=== PATIENT | female | born 2000 | race Caucasian/White ===

== ENCOUNTER → 2022-03-30 10:56 | Outpatient (CLI) | payer OTHER, SELFPAY ==
--- NOTE | 2022-03-30 10:58 | DI.US.S_ITS ---
PROCEDURE: US OB <= 14 WEEKS FETUS INDICATIONS: DATING OUTSIDE/PRIOR DATING DATA: Last menstrual period (LMP): January 10, 2022. LMP-based estimated date of delivery (MOE): October 17, 2022. First dating scan (date and location): March 30, 2022, [facility]. Estimated date of delivery (MOE) from first dating scan: October 23, 2022. TECHNIQUE: Real-time scanning was performed of the fetus and maternal pelvic organs, with image documentation. Endovaginal scanning was also performed to better visualize the fetus and maternal ovaries. COMPARISON: None. FINDINGS: Embryo: Single live intrauterine gestation visualized with a crown-rump length of 3.6 cm for a gestational age of 10 weeks, 3 days. Heart rate: 162 Maternal organs: Ovaries have a normal sonographic appearance. The left ovary is only partially characterized given location.. IMPRESSION: Single live intrauterine gestation with a gestational age of 10 weeks, 3 days by crown-rump length. We strive to produce accurate, complete, and clear reports of imaging services. To assist us in improving patient care, this report was composed using standard report templates and voice recognition software. Therefore, it may contain abnormal punctuation, insertions and/or omissions. Occasional wrong-word or sound-alike substitutions may occur. Though we review the report and make efforts to correct it, we do recommend that the report be read carefully in proper context to recognize any text inaccuracies. Dictated by: Yanci Conner M.D. on 03/30/2022 at 13:47 Approved by: Yanci Conner M.D. on 03/30/2022 at 13:48
== END ==
PROVIDERS: Referring Provider Obstetrics & Gynecology; Visit Provider Obstetrics & Gynecology
DX: Z34.01 Encounter for supervision of normal first pregnancy, first trimester (principal); Z3A.10 10 weeks gestation of pregnancy
CPT/HCPCS: 76801; 76817

== ENCOUNTER → 2022-04-13 16:03 | Outpatient (CLI) | payer OTHER, SELFPAY ==
[2022-04-13 17:58] LABS: Add Manual Diff / Slide Review NO; Basophils Absolute Auto 100 /uL (0-100); Basophils Percent Auto 0.5 % (0-2); Eosinophils Absolute Auto 500 /uL (0-450); Eosinophils Percent Auto 3.8 % (2-4); Hematocrit 36.3 % (36-46); Hemoglobin 12.8 g/dL (12.0-16.0); Lymphocytes Absolute Auto 2100 /uL (1100-4500); Lymphocytes Percent Auto 17.2 % (25-40); Mean Corpuscular HGB Conc 35.3 % (30-36); Mean Corpuscular Hemoglobin 30.7 PG (26-34); Monocytes Absolute Auto 600 /uL (0-900); Neutrophils Absolute Auto 8800 /uL (1500-7000); Neutrophils Percent Auto 73.5 % (50-75); Platelet Count 219 X10^3/uL (150-400); Red Blood Cell Count 4.17 X10^6/uL (4.0-5.2); Red Cell Distribution Width 13.1 % (11.6-14.8)
[2022-04-13 20:58] LABS: Rubella Antibody IgG 13.5 IU/mL (>15)
[2022-04-13 21:18] LABS: HIV 1 & 2 Ab/Ag 4th Gen Combo NEGATIVE (NEGATIVE); Hep C Virus Ab w/Reflex Quant NEGATIVE s/c (NEGATIVE)
[2022-04-15 12:27] LABS: Varicella IgG Antibody <135 index (Immune >165)
[2022-04-15 15:44] LABS: Hepatitis B Surface Antigen NEGATIVE s/c (NEGATIVE)
[2022-04-17 08:09] LABS: RPR Screen Non Reactive (Non Reactive)
== END ==
PROVIDERS: Referring Provider Obstetrics & Gynecology; Visit Provider Obstetrics & Gynecology
DX: Z34.01 Encounter for supervision of normal first pregnancy, first trimester (principal)
CPT/HCPCS: 36415; 80055; 86787; 86803; 86850; 86900; 86901; 87389

== ENCOUNTER → 2022-05-04 09:22 | Outpatient (CLI) | payer OTHER, SELFPAY ==
[2022-05-04 10:01] LABS: Appearance Urine UA CLEAR; Bilirubin Urine UA NEGATIVE (NEGATIVE); Color Urine UA YELLOW; Glucose Urine UA NEGATIVE (Negative); Ketones Urine UA NEGATIVE (NEGATIVE); Leukocyte Esterase Urine UA NEGATIVE (NEGATIVE); Nitrite Urine UA NEGATIVE (Negative); Occult Blood Urine UA NEGATIVE (Negative); Protein Urine UA NEGATIVE (Negative); Specific Gravity Urine UA <=1.005 (1.000-1.035); Urobilinogen Urine UA 0.2 E.U./dL (0.2)
[2022-05-04 10:06] LABS: pH Urine UA 6.5 (4.5-8.0)
[2022-05-04 11:27] LABS: Urine N gonorrhoeae NOT DETECTED
[2022-05-04 11:29] LABS: Urine Chlamydia NOT DETECTED
[2022-05-06 20:38] LABS: AFP, Serum 18.3 ng/mL (.); Estriol, Free 0.62 ng/mL (.); Inhibin A, Dimeric 88.72 pg/mL (.); Inhibin A, MoM 0.64 (.); Maternal Ethnicity Caucasian (.); Maternal Weight 186 lbs (.); Number of Fetuses No (.); OSBR Risk 1 IN 10000 (.); Results Report (.); Test Results *Screen Negative* (.); hCG, MoM 0.54 (.); hCG, Serum 17970 mIU/mL (.)
== END ==
PROVIDERS: Referring Provider Obstetrics & Gynecology; Visit Provider Obstetrics & Gynecology
DX: Z34.02 Encounter for supervision of normal first pregnancy, second trimester (principal); Z3A.16 16 weeks gestation of pregnancy
CPT/HCPCS: 36415; 81003; 82105; 82677; 84702; 86336; 87491; 87591

== ENCOUNTER → 2022-06-03 10:08 | Outpatient (CLI) | payer OTHER, SELFPAY ==
--- NOTE | 2022-06-03 10:08 | DI.US.S_ITS ---
PROCEDURE: US OB >= 14 WEEKS FETUS INDICATIONS: ANATOMY OUTSIDE/PRIOR DATING DATA: Last menstrual period (LMP): 01/10/2022 LMP-based estimated date of delivery (MOE): 10/17/2022 First dating scan (date and location): 03/30/2023 Estimated date of delivery (MOE) from first dating scan: 10/23/2022 The calculations are made using the working MOE of 10/17/2022. TECHNIQUE: Real-time scanning was performed of the fetus, with image documentation and biometric measurements. Endovaginal scanning: Not indicated COMPARISON: [facility], OB <= 14 WEEKS FETUS, 03/30/2022, 11:06. FINDINGS: General: A single living intrauterine gestation is present. Presentation: Breech Placenta: Placental position is anterior, without previa. Amniotic fluid index: 16.7 cm, normal range is 5-24 cm. Single deepest vertical pocket is 4.8 cm. heart rate: 143 beats per minute. Maternal cervical canal: 3.3 cm long. Normal lower limit is 2.5 cm. biometrics: Biparietal diameter: 4.9 cm, 20 weeks, 6 days. Head circumference: 18.0 cm, 20 weeks, 3 days. Abdominal circumference: 14.4 cm, 19 weeks, 5 days. Femur length: 3.3 cm, 20 weeks, 2 days. Clinically estimated gestational age: 20 weeks, 2 days Composite gestational age from present scan: 19 weeks, 5 days Estimated weight and percentile: 331 g, 67% Anatomic survey: Neuro: Ventricles are non-dilated at less than 10 mm. Cisterna magna is normal at 3-11 mm. Cerebellum is normal in size and morphology. Nuchal skin fold: Normal at less than 6 mm between 14-21 weeks gestational age. Face: Nose and lips, facial profile are normal. Spine: No evidence for spina bifida. Heart: 4-chambered heart is present, with normal ventricular outflow tracts. Diaphragm: Diaphragm is intact. Stomach: Left-sided stomach is present. Kidneys: No hydronephrosis. Normal is less than 5 mm in 2nd trimester, less than 7 mm in 3rd trimester. Cord: 3-vessel cord has orthotopic insertion. Bladder: Normal in size. Extremities: All 4 extremities identified. IMPRESSION: 1. Single live intrauterine gestation with fetus in breech presentation. heart rate is 143 beats per minute. Normal amount of amniotic fluid. Normal growth. Estimated weight is at 67%. 2. Normal anatomic survey. We strive to produce accurate, complete, and clear reports of imaging services. To assist us in improving patient care, this report was composed using standard report templates and voice recognition software. Therefore, it may contain abnormal punctuation, insertions and/or omissions. Occasional wrong-word or sound-alike substitutions may occur. Though we review the report and make efforts to correct it, we do recommend that the report be read carefully in proper context to recognize any text inaccuracies. Dictated by: Shaheen Lujan M.D. on 06/03/2022 at 13:10 Approved by: Shaheen Lujan M.D. on 06/03/2022 at 13:13
== END ==
PROVIDERS: Referring Provider Obstetrics & Gynecology; Visit Provider Obstetrics & Gynecology
DX: Z34.02 Encounter for supervision of normal first pregnancy, second trimester (principal); Z3A.19 19 weeks gestation of pregnancy
CPT/HCPCS: 76811

== ENCOUNTER → 2022-07-13 10:31 | Outpatient (CLI) | payer OTHER, SELFPAY | PROVIDERS: Visit Provider Obstetrics & Gynecology | DX: Z34.02 Encounter for supervision of normal first pregnancy, second trimester (principal); Z3A.26 26 weeks gestation of pregnancy | CPT/HCPCS: 87086 ==

== ENCOUNTER → 2022-07-20 10:56 | Outpatient (CLI) | payer OTHER, SELFPAY ==
[2022-07-20 13:02] LABS: Hematocrit 37.1 % (36-46); Hemoglobin 12.6 g/dL (12.0-16.0)
[2022-07-20 13:07] LABS: GTT (PREG) 1 Hour PP 50gm Dose 135 mg/dL (76-139)
--- NOTE | 2022-09-19 22:46 | PM.CALLCOV.1 ---
Call Coverage Note Note Date of Patient Contact: 09/18/22 Time of Patient Contact: 10:00 Narrative of Care Provided: Destiny is a 22 year old who is approx 36 weeks. Called with spotting, only noticed on her underwear. Denies loss of fluid. Baby moving well. Provided reassurance and reviewed warning signs.
== END ==
PROVIDERS: Referring Provider Obstetrics & Gynecology; Visit Provider Obstetrics & Gynecology
DX: Z34.02 Encounter for supervision of normal first pregnancy, second trimester (principal); Z3A.26 26 weeks gestation of pregnancy
CPT/HCPCS: 36415; 82950; 85014; 85018

== ENCOUNTER → 2022-09-21 11:18 | Outpatient (CLI) | payer OTHER, SELFPAY ==
[2022-09-22 07:39] LABS: Strep Grp B PCR NEG for Grp B Strep
== END ==
PROVIDERS: Visit Provider Obstetrics & Gynecology
DX: Z34.03 Encounter for supervision of normal first pregnancy, third trimester (principal); Z3A.36 36 weeks gestation of pregnancy
CPT/HCPCS: 87653

== ENCOUNTER 2022-10-20 16:54 | Outpatient (CLI) | payer OTHER, SELFPAY ==
--- NOTE | 2022-10-20 17:41 | PM.OBTRLD ---
Visit Information Visit Information Date of evaluation: 10/20/22 Primary OB Provider: Master Tejada On-call OB Provider: Kelly Wells Reason for Evaluation: Yes non-stress test non-stress test reason: other (Postdates) Vital Signs Vital Signs: Blood pressure 131/86 [facility] Medical History (Updated 10/20/22 @ 17:42 by Kelly Wells MD) Anxiety Asthma Depression Fibroadenoma of left breast Fractures History of bipolar disorder Surgical History (Updated 03/30/22 @ 10:04 by Na Doyle, RN) H/O tooth extraction Family History (Updated 03/30/22 @ 10:05 by Na Doyle, RN) Mother Preeclampsia Social History marital status: number of children: 0 household members: spouse lives independently: Yes housing: condominium pets and animals: Yes (1 dog) education level: college occupational status: employed current occupational exposures/hazards: No special jessica needs: No travel history: recent seatbelt use: always helmet use: Yes water heater temp set < 120 deg: No (will adjust) working smoke detector in home: Yes fire extinguisher in home: Yes carbon monox detector in home: Yes firearms in home: No do you feel safe at home: Yes Smoking Status: Never smoker second hand exposure: No alcohol intake: former during the past year weight has: increased > 10 lbs well-balanced diet: daily or most days daily servings fruits/ve-4 caffeine: Yes (Aware of 200mg limit) Type(s) of exercise: walking frequency: 1-2 times per week Evaluation Evaluation Baseline heart rate: 130 Variability: Moderate (11-25) monitor accelerations: Present Monitor Decelerations: Absent Contraction Frequency (minutes): 4 Uterine Contraction Intensity: Mild Category of Tracing: Reactive Status: Category l Diagnosis, Plan/Disposition Final Diagnosis (1) 40 weeks gestation of : Status: Acute Plan/Disposition Plan: Reactive nonstress test. Biophysical profile in the office 03/15. MORTEZA of 8. Patient is scheduled for induction on Tuesday. Consent form reviewed with the patient and signed. OB Disposition: home
== END 2022-10-20 17:50 | disposition home or self-care (01) ==
LOC: LABOR 16:58 → OB 10-21 13:08
PROVIDERS: Referring Provider Obstetrics & Gynecology; Visit Provider Obstetrics & Gynecology
DX: O48.0 Post-term pregnancy (principal); Z3A.40 40 weeks gestation of pregnancy
CPT/HCPCS: 59025; G0378; G0379

== ENCOUNTER 2022-10-21 08:31 | Inpatient (IN) | payer OTHER, SELFPAY ==
[2022-10-21 09:47] LABS: Add Manual Diff / Slide Review NO; Basophils Absolute Auto 100 /uL (0-100); Basophils Percent Auto 0.7 % (0-2); Eosinophils Absolute Auto 200 /uL (0-450); Eosinophils Percent Auto 1.3 % (2-4); Hematocrit 36.7 % (36-46); Hemoglobin 12.3 g/dL (12.0-16.0); Lymphocytes Absolute Auto 1900 /uL (1100-4500); Lymphocytes Percent Auto 16.6 % (25-40); Mean Corpuscular HGB Conc 33.6 % (30-36); Mean Corpuscular Hemoglobin 28.6 PG (26-34); Mean Corpuscular Volume 85.1 fL (80-100); Monocytes Absolute Auto 600 /uL (0-900); Monocytes Percent Auto 4.8 % (3-14); Neutrophils Absolute Auto 8800 /uL (1500-7000); Neutrophils Percent Auto 76.6 % (50-75); Platelet Count 112 X10^3/uL (150-400); Red Blood Cell Count 4.32 X10^6/uL (4.0-5.2); Red Cell Distribution Width 13.7 % (11.6-14.8); White Blood Cell Count 11.5 X10^3/uL (4.5-11.0)
--- NOTE | 2022-10-21 12:43 | P.HPOB_ITS ---
OB HPI Date/Time Date of admission: 10/21/22 Date Patient Seen: 10/21/22 Time Patient Seen: 12:44 History of Present Condition Chief complaint: Labor : 1 Para: 0 Estimated Date of Delivery: 10/15/22 Estimated Gestational Age (weeks): 40 Narrative: Destiny Acevedo is a 22 year old female scheduled for induction tomorrow for postdates who came in complaining of increased contractions. No leakage of fluid. Good movement. No headaches History of Present care: good care Dating criteria: LMP confirmed by 1st trimester US Ultrasounds: normal mid trimester US Obstetrical complications: none Medical complications: none Preadmission Labs Blood type: O (+) positive -: Antibody screen: negative, GBS status: negative, HBsAG: negative, HIV: negative and RPR/VDLR: negative -: Chlamydia screen: not detected and Gonorrhea screen: not detected -: Rubella: not immune and Varicella: not immune HCAB: negative Quad screen: Normal 1 hr GTT: 135 Evaluation Evaluation Baseline heart rate: 140 Variability: Moderate (11-25) monitor accelerations: Present Monitor Decelerations: Variable (1) Contraction Frequency (minutes): 4 Uterine Contraction Intensity: Mild Category of Tracing: Reactive Status: Category l Dilation (cm): 4 Effacement (%): 80 station: -1 [facility] Medical History (Updated 10/20/22 @ 17:42 by Kelly Wells MD) Anxiety Asthma Depression Fibroadenoma of left breast Fractures History of bipolar disorder Surgical History (Updated 03/30/22 @ 10:04 by Na Doyle RN) H/O tooth extraction Family History (Updated 03/30/22 @ 10:05 by Na Doyle RN) Mother Preeclampsia Social History marital status: number of children: 0 household members: spouse lives independently: Yes housing: condominium pets and animals: Yes (1 dog) education level: college occupational status: employed current occupational exposures/hazards: No special jessica needs: No travel history: recent seatbelt use: always helmet use: Yes water heater temp set < 120 deg: No (will adjust) working smoke detector in home: Yes fire extinguisher in home: Yes carbon monox detector in home: Yes firearms in home: No do you feel safe at home: Yes Smoking Status: Never smoker second hand exposure: No alcohol intake: former during the past year weight has: increased > 10 lbs well-balanced diet: daily or most days daily servings fruits/ve-4 caffeine: Yes (Aware of 200mg limit) Type(s) of exercise: walking frequency: 1-2 times per week Meds Home Medications and Allergies Home Medications Medication Instructions Recorded Confirmed Type escitalopram oxalate 10 mg tablet 10 mg PO DAILY 03/30/22 10/21/22 History prenat.vits,carmencita,[id number] 1 tab PO DAILY 03/30/22 10/21/22 History omeprazole 40 mg capsule,delayed 40 mg PO DAILY #30 caps 08/25/22 10/21/22 Rx release Allergies Allergy/AdvReac Type Severity Reaction Status Date / Time No Known Allergies Allergy Verified 10/20/22 16:14 Review of Systems Review of Systems Narrative: Patient is having increasing contractions. No leakage of fluid. No headaches, scotomata, epigastric pain. Good movement. OB Exam Vital signs Blood Pressure: 138/81 Pulse Rate: 96 Narrative Exam Narrative: HEENT exam within normal limits. Lungs are clear to auscultation percussion. Heart is regular rate and rhythm no S3-S4 murmurs. No thyromegaly. Abdomen is gravid and nontender. Fetus is vertex. Extremities with trace edema and nontender. Normal DTRs. Objective Labs 10/21/22 09:30 Labs: Laboratory Results - last 24 hr 10/21/22 10/21/22 09:30 09:30 WBC 11.5 H RBC 4.32 Hgb 12.3 Hct 36.7 MCV 85.1 MCH 28.6 MCHC 33.6 RDW 13.7 Plt Count 112 L Neut % (Auto) 76.6 H Lymph % (Auto) 16.6 L Hand % (Auto) 4.8 Eos % (Auto) 1.3 L Baso % (Auto) 0.7 Neut # (Auto) 8800 H Lymph # (Auto) 1900 Hand # (Auto) 600 Eos # (Auto) 200 Baso # (Auto) 100 Blood Type O Positive Antibody Screen Negative Assessment and Plan Assessment and Plan Assessment and Plan narrative: 40 week 6 day gestation in early labor. Some elevated blood pressures but no other concerns for preeclampsia. If patient does not continue in active labor Pitocin will be begun. Anticipate vaginal delivery.
[2022-10-21 12:55] VITALS: BP 138/81; PULSE 96
[2022-10-21] MEDS: OXYTOCIN PREMIX 30 UNIT/500 ML PLAST..BAG 200 UNIT IV (13:04)
[2022-10-21] MEDS: LACTATED RINGERS 1,000 ML 100 ML IV ×2 (13:05→15:24)
[2022-10-21 13:54] VITALS: BP 136/95
[2022-10-21] MEDS: FENT 2MCG/ML BUPIV 0.125% EPI 200 MCG/100 ML PLAST..BAG 10 MCG EPIDURAL (15:24)
--- NOTE | 2022-10-21 17:47 | PM.OBPNLAB ---
Date/Time Date Patient Seen: 10/21/22 Time Patient Seen: 17:47 Pain Control Pain control: epidural Pelvic Exam Dilation (cm): 9 Effacement (%): 100 station: 0 Amniotic membrane status: Intact Contractions Contractions on admission: regular Monitor mode: External Pitocin rate (mU/min): 4 Contraction frequency (min): 3 Contraction duration (min): 1 Contraction pattern: Regular Contraction intensity: Strong/Firm Status status: Category ll Heart Rate Baseline: 140 Monitor Accelerations: Present Monitor Decelerations: Absent and Episodic (Minor variables) Monitor Variability: Moderate Comments: There was a short term, 8 minutes, change in baseline to the 100s with position changes the heart rate returned to baseline 140 Assessment and Plan Assessment: active labor Plan: continuous present management
--- NOTE | 2022-10-21 20:40 | P.PCNOB_ITS ---
Labor & Delivery Delivery date: 10/21/22 Intrapartal Events: Ineffective Pushing and Extended Bradycardia Delivery augmentation: pitocin Delivery monitor: external FHT, external uterine and internal FHT Route of delivery: forceps (Outlet) Indication for instrumentation: nonreassuring FHR tracing (Prolonged bradycardia 80 to 100s) L&D Laceration Description: Vaginal - 2nd Degree and Labial (Right labial minora) Delivery repair: chromic (3-0 and 4-0) Estimated blood loss (mL): 300 Anesthesia Type: Epidural Narrative: Patient arrived on Labor and delivery in early labor. She had slow progress so she was begun on Pitocin augmentation. She received an epidural catheter for pain control. heart tones category 1 to category 2 throughout labor. Occasional variable decelerations but excellent [id number] variability and accelerations. The patient began having uncontrolled pain with descent of the fetus despite changes the epidural and boluses. The patient was unable to push effectively. A scalp electrode was placed due to difficulty monitoring the heart tones. After placement of the scalp electrode it was found that the heart tone baseline was 80s to 100. Heart rate remained low despite position changes and decision was made to assist delivery with outlet forceps. The forceps were placed without difficulty. The head was delivered over an intact perineum. The forceps were removed. A nuchal cord was released. The fetus was delivered and placed on maternal abdomen. After 1 minute there was no pulsation of the cord. The cord was clamped, cut, section for cord pH and cord bloods were obtained. The placenta delivered spontaneously, intact, with 3 vessels. There were no cervical tears. There was a second-degree posterior vaginal tear and a right labial minora tear. The vaginal tear was repaired with 3-0 chromic suture. The labial tear was repaired with 4-0 chromic suture. Estimated blood loss 300 cc. Both and mother doing well. [place] Baby 1: Infant gender: Male Presentation: vertex Position: Right Occiput Anterior Placenta delivery description: Spontaneous Cord Vessel Description: 3 Vessels, Nuchal Cord and Tight score (1 min): 7 score (5 min): 8 Plan for aftercare: Routine care
[2022-10-21] MEDS: ACETAMINOPHEN 325 MG TABLET 650 MG PO (22:13)
[2022-10-21] MEDS: IBUPROFEN 600 MG TABLET PO (22:13)
[2022-10-21] MEDS: DERMOPLAST SPRAY 20% 60 ML 1 SPRAY TOP (22:21)
[2022-10-22] MEDS: ACETAMINOPHEN 325 MG TABLET 650 MG PO ×2 (04:15→14:18)
[2022-10-22 05:47] LABS: Basophils Absolute Auto 0 /uL (0-100); Basophils Percent Auto 0.3 % (0-2); Eosinophils Absolute Auto 100 /uL (0-450); Eosinophils Percent Auto 0.6 % (2-4); Hematocrit 28.9 % (36-46); Hemoglobin 9.9 g/dL (12.0-16.0); Lymphocytes Absolute Auto 1900 /uL (1100-4500); Lymphocytes Percent Auto 15.7 % (25-40); Mean Corpuscular HGB Conc 34.1 % (30-36); Mean Corpuscular Hemoglobin 28.8 PG (26-34); Mean Corpuscular Volume 84.4 fL (80-100); Monocytes Absolute Auto 800 /uL (0-900); Monocytes Percent Auto 6.4 % (3-14); Neutrophils Absolute Auto 9500 /uL (1500-7000); Platelet Count 98 X10^3/uL (150-400); Red Blood Cell Count 3.42 X10^6/uL (4.0-5.2); Red Cell Distribution Width 13.7 % (11.6-14.8); White Blood Cell Count 12.3 X10^3/uL (4.5-11.0)
[2022-10-22 06:03] LABS: Add Manual Diff / Slide Review SLIDE REVIEW
[2022-10-22] MEDS: IBUPROFEN 600 MG TABLET PO ×2 (06:30→14:18)
[2022-10-22 06:39] LABS: RBC Morphology Normal Morphology
--- NOTE | 2022-10-22 12:46 | P.DS_ITS ---
Discharge Providers Provider Date of admission: 10/21/22 08:31 Discharge Date: 10/22/22 Primary care physician: Thu SINGER Provider Consults: 10/21/22 08:55 Consult to Anesthesiology Urgent Comment: Consulting Provider: Anesthesiologist Reason for consultation: Epidural Has provider been notified: No 10/22/22 20:33 Consult to Purchasing/Receiving Routine Comment: Discharge provider: Kelly Wells MD Summary Hospital Course Date Patient Seen: 10/22/22 Time Patient Seen: 12:46 Diagnoses: Vaginal delivery Hospital Course: Patient arrived on Labor and delivery in early labor. She had Pitocin augmentation of labor. Patient received an epidural catheter for pain control although did not have good control of her pain. With pushing the baby had a prolonged decelerations and so the delivery was expedited with forceps. A labial and second-degree vaginal tear were repaired. Patient denies headaches, scotomata, epigastric pain. Her pain is under control with Motrin. Bleeding is appropriate. She is urinating and ambulating well. Breast-feeding is going well. Peripartum Data Delivery Method: Assisted Delivery (Forceps) Laceration Description: Vaginal - 2nd Degree and Labial (Right labia minora) Procedures: Epidural catheter, Pitocin augmentation of labor, outlet forceps assisted vaginal delivery, repair of vaginal tears complications: none [place] 1: Gender: Male Disposition of : home Discharge Diagnosis (1) Acute blood loss anemia: Status: Acute (2) Low forceps delivery of first : Status: Acute Status at Discharge Cognitive/behavioral status at discharge: oriented Functional status at discharge: independent ambulation Overall status at discharge: patient is progressing back to baseline Time Spent with Patient Time attestation: Total time spent providing and/or coordinating discharge services: Time spent: Less than 30 minutes Objective Labs 10/22/22 05:25 Labs: Laboratory Results - last 24 hr 10/22/22 05:25 WBC 12.3 H RBC 3.42 L Hgb 9.9 L Hct 28.9 L MCV 84.4 MCH 28.8 MCHC 34.1 RDW 13.7 Plt Count 98 L Neut % (Auto) 77.0 H Lymph % (Auto) 15.7 L [place] % (Auto) 6.4 Eos % (Auto) 0.6 L Baso % (Auto) 0.3 Neut # (Auto) 9500 H Lymph # (Auto) 1900 [place] # (Auto) 800 Eos # (Auto) 100 Baso # (Auto) 0 RBC Morphology Normal morphology Exam Vital Signs (past 8 hours): Blood pressure 129/88, pulse of 80, temperature 97.5? Narrative Exam Narrative: Abdomen is soft, nontender. Uterus is firm, at U, nontender. Repair is intact. Mild lochia. Extremities with trace edema and nontender. Normal DTRs. Discharge Plan Discharge Plan Patient Disposition: Home Discharge orders & Medications Prescriptions: New ibuprofen 600 mg Tablet 600 mg PO Q6HR PRN (Reason: Pain, Mild (1-3)) Qty: 20 0RF ferrous gluconate 324 mg (37.5 mg iron) tablet 648 mg PO BID Qty: 60 0RF Continued prenat.vits,carmencita,[id number] Tablet 1 tab PO DAILY escitalopram oxalate 10 mg tablet 10 mg PO DAILY omeprazole 40 mg capsule,delayed release(DR/EC) 40 mg PO DAILY Qty: 30 12RF Follow up/Referrals: Kelly Wells MD [Physician] - 1 Week (Blood pressure check at one-week, Also 6 week ) ProviderThu [Primary Care Provider] - Master Tejada MD [Physician] - 6 Weeks (Post [address] Tejada on 12/03/2022 @ 1500) Diet/Activity/Treatments Diet: Regular Activity: Nothing in vagina for 6 weeks Skin/Wound/Dressing Care Report to your healthcare provider any signs of infection, such as:: chills, fever and increased pain Discharge Data Primary Care Provider: Thu Mooney
[2022-10-22] MEDS: MEASLES,MUMPS,RUBELLA VACC/PF 0.5 ML VIAL SUBCUT (16:09)
== END 2022-10-22 16:45 | disposition home or self-care (01) | DRG 806 ==
PROVIDERS: Admitting Provider Specialist; Referring Provider Specialist; Visit Provider Specialist
DX: O76 Abnormality in fetal heart rate and rhythm complicating labor and delivery (principal); D62 Acute posthemorrhagic anemia; Z37.0 Single live birth; O90.81 Anemia of the puerperium; Z3A.40 40 weeks gestation of pregnancy; O70.1 Second degree perineal laceration during delivery
CPT/HCPCS: 36415; 59050; 59400; 59409; 85025; 86850; 86900; 86901; G0379; J2590

== ENCOUNTER → 2023-03-14 15:55 | Outpatient (CLI) | payer OTHER, SELFPAY ==
--- NOTE | 2023-03-14 | DI.MRI.S_ITS ---
PROCEDURE: MR KNEE LT WO CON INDICATIONS: LEFT KNEE INJURY TECHNIQUE: Noncontrast sagittal PD fast spin echo and T2 fast spin echo with fat saturation, sagittal 3-D FLASH with fat saturation; coronal T1 spin echo and PD fast spin echo with fat saturation, and axial PD fast spin echo with fat saturation through the knee. COMPARISON: None. FINDINGS: Image quality: Excellent. Menisci: The medial and lateral menisci demonstrate normal morphology and internal signal. The meniscal root ligaments appear intact. Cruciate ligaments: The anterior and posterior cruciate ligaments are intact. Medial structures: The medial collateral ligament appears intact. The posterior oblique ligament, semimembranosus tendon insertions, oblique popliteal ligament, and meniscocapsular junction appear intact. Visualized portions of the pes anserinus tendons appear normal. No abnormal bursal fluid. Lateral structures: The lateral collateral ligament, long and short heads of the biceps femoris tendon appear intact. The popliteus tendon appears normal; the popliteofibular ligament appears intact. Iliotibial band appears normal. Anterior structures: Low to moderate grade partial-thickness tear involving medial patellofemoral ligament at its patellar insertion is seen. The quadriceps and patellar tendons appear intact. Patellar alignment is normal. No femoral trochlear dysplasia or ventral trochlear prominence. No edema in the infrapatellar fat pad. Bones and cartilage: Significant marrow edema involving medial periphery of patella with cortical disruption involving inferior and medial portion of patella suggestive of a nondisplaced fracture in this area. Marrow edema is also seen involving lateral periphery of lateral femoral condyle without discrete fracture line or cortical disruption. The cartilage of the medial and lateral femorotibial compartments, as well as the patellofemoral compartment, appears normal in thickness. Joint space: There is moderate knee joint fluid. No intra-articular loose bodies. There is a 1.4 x 1.3 x 3.2 cm Apple's cyst. Normal appearing synovial plicae are incidentally noted. IMPRESSION: 1. Finding is consistent with reduced lateral dislocation of patella with nondisplaced fracture involving medial aspect of patella and bony contusion involving lateral periphery of lateral femoral condyle. Moderate grade partial-thickness tear involving medial patellofemoral ligament. No significant patellar subluxation. 2. Moderate joint effusion and a small Apple's cyst. No gross loose bodies. 3. The cruciate ligaments are intact. 4. No evidence of focal meniscal tear. Dictated by: Shaheen Lujan M.D. on 03/15/2023 at 8:15 Approved by: Shaheen Lujan M.D. on 03/15/2023 at 8:53
== END ==
PROVIDERS: Referring Provider Nurse Practitioner Family; Visit Provider Nurse Practitioner Family
DX: S76.112A Strain of left quadriceps muscle, fascia and tendon, initial encounter (principal); S80.912A Unspecified superficial injury of left knee, initial encounter; M25.462 Effusion, left knee; M71.22 Synovial cyst of popliteal space [Baker], left knee; X58.XXXA Exposure to other specified factors, initial encounter
CPT/HCPCS: 73721